=== PATIENT | female | born 1975 | race American Indian/Alaskan Native ===

== ENCOUNTER 2019-04-23 00:30 | Emergency (ER) | payer MEDICAID ==
[2019-04-23 01:52] LABS: Basophils % (Auto) 0.2 % (0.0-1.8); Eosinophils % (Auto) 0.3 % (0.0-4.3); Hematocrit 39.7 % (30.3-42.9); Hemoglobin 13.4 gm/dl (10.1-14.3); Lymphocytes # (Auto) 1.1 K/mm3 (1.2-5.4); Lymphocytes % (Auto) 19.9 % (13.4-35.0); Mean Corpuscular HGB Conc 34 % (30-34); Mean Corpuscular Volume 87 fl (79-97); Monocytes # (Auto) 0.4 K/mm3 (0.0-0.8); Platelet Count 226 K/mm3 (140-440); Red Blood Count 4.55 M/mm3 (3.65-5.03); Red Cell Distribution Width 15.4 % (13.2-15.2)
[2019-04-23 01:56] LABS: Alanine Aminotransferase 62 units/L (7-56); Albumin 4.3 g/dL (3.9-5); BUN/Creatinine Ratio 13; Blood Urea Nitrogen 10 mg/dL (7-17); Calcium 9.5 mg/dL (8.4-10.2); Hemolysis Index 8
[2019-04-23] MEDS ORDERED: TYLENOL ONE (02:29)
[2019-04-23] MEDS ORDERED: TYLENOL PO ONE (02:29)
[2019-04-23 02:42] LABS: Bilirubin,Urine NEG (Negative); Blood,Urine NEG (Negative); Color,Urine Yellow (Yellow); Protein,Urine <15 mg/dL mg/dL (Negative); Urobilinogen,Urine < 2.0 mg/dL (<2.0)
[2019-04-23] MEDS ORDERED: MORPHINE IV ONE (03:51)
[2019-04-23] MEDS ORDERED: PEPCID IV ONE (03:51)
[2019-04-23] MEDS ORDERED: ZOFRAN IV ONE (03:52)
--- NOTE | 2019-04-23 03:54 | Emergency Department Report ---
ED Abdominal Pain HPI - General Chief Complaint: Abdominal Pain Stated Complaint: ABD PAIN Time Seen by Provider: 04/23/19 03:50 Source: patient, family Mode of arrival: Ambulatory Limitations: No Limitations - History of Present Illness Initial Comments: Mrs. Israel is a healthy 44-year-old female who presents with central abdominal pain this evening. Gradual Onset. Gas-like pain. Dull. Moderately severe. Denies fever. Denies vomiting. Denies diarrhea. MD Complaint: abdominal pain -: Gradual, This evening Location: diffuse Radiation: none Migration to: no migration Severity: moderate Severity scale (0 -10): 10 Quality: aching, dull Consistency: constant Improves With: nothing Worsens With: nothing Associated Symptoms: denies other symptoms - Related Data Previous Rx's Medication Instructions Recorded Last Taken Type Ciprofloxacin HCl [Ciprofloxacin 500 mg PO Q12HR 3 Days #6 tab 04/23/19 Unknown Rx TAB] Famotidine [Pepcid] 20 mg PO BID 7 Days #14 tablet 04/23/19 Unknown Rx Promethazine [Phenergan] 25 mg PO Q6HR PRN #10 tab 04/23/19 Unknown Rx Allergies Allergy/AdvReac Type Severity Reaction Status Date / Time No Known Allergies Allergy Verified 04/23/19 00:33 ED Review of Systems ROS: Stated complaint: ABD PAIN Other details as noted in HPI Comment: All other systems reviewed and negative Constitutional: denies: fever, malaise Respiratory: denies: cough Cardiovascular: denies: chest pain ED Past Medical Hx - Past Medical History Previous Medical History?: No - Surgical History Past Surgical History?: Yes Additional Surgical History: Tubal Ligation - Social History Smoking Status: Never Smoker Substance Use Type: None - Medications Home Medications: Home Medications Medication Instructions Recorded Confirmed Last Taken Type Ciprofloxacin HCl [Ciprofloxacin 500 mg PO Q12HR 3 Days #6 tab 04/23/19 Unknown Rx TAB] Famotidine [Pepcid] 20 mg PO BID 7 Days #14 tablet 04/23/19 Unknown Rx Promethazine [Phenergan] 25 mg PO Q6HR PRN #10 tab 04/23/19 Unknown Rx ED Physical Exam - General Limitations: No Limitations General appearance: alert, in no apparent distress - Head Head exam: Present: atraumatic, normocephalic - Eye Eye exam: Present: normal appearance - ENT ENT exam: Present: mucous membranes moist - Neck Neck exam: Present: normal inspection, full ROM - Respiratory Respiratory exam: Present: normal lung sounds bilaterally. Absent: respiratory distress, wheezes, rales, rhonchi - Cardiovascular Cardiovascular Exam: Present: regular rate, normal rhythm, normal heart sounds. Absent: systolic murmur, diastolic murmur, rubs, gallop - GI/Abdominal GI/Abdominal exam: Present: soft, normal bowel sounds. Absent: distended, tenderness, rebound - Extremities Exam Extremities exam: Present: normal inspection - Back Exam Back exam: Present: normal inspection - Neurological Exam Neurological exam: Present: alert, oriented X3 - Psychiatric Psychiatric exam: Present: normal affect, normal mood - Skin Skin exam: Present: warm, dry, intact, normal color. Absent: rash ED Course Vital Signs 04/23/19 04/23/19 04/23/19 00:46 04:26 04:27 Temperature 97.7 F Pulse Rate 50 L Respiratory 16 18 18 Rate Blood Pressure 145/73 O2 Sat by Pulse 99 100 Oximetry ED Medical Decision Making - Lab Data Result diagrams: 04/23/19 01:20 04/23/19 01:20 - Radiology Data Radiology results: report reviewed CT A/P: nonspecific jejunitis, distended gallbladder without stones - Medical Decision Making Mrs. Clarke presents with 8 hours of central abdominal pain. CT reflects findings of jejunitis distended gallbladder. Suspect early mild GI illness whi ch will resolved. Do not suspect severe process such as ischemia or cholecystitis. Recommended clear liquid diet. prescribed promethazine ciprofloxacin and famotidine. Critical care attestation.: If time is entered above; I have spent that time in minutes in the direct care of this critically ill patient, excluding procedure time. ED Disposition Clinical Impression: Enteritis, Abdominal pain Disposition: DC-01 TO HOME OR SELFCARE Is pt being admited?: No Condition: Stable Instructions: Abdominal Pain (ED), Gastroenteritis (ED) Prescriptions: Ciprofloxacin HCl [Ciprofloxacin TAB] 500 mg PO Q12HR 3 Days #6 tab Famotidine [Pepcid] 20 mg PO BID 7 Days #14 tablet Promethazine [Phenergan] 25 mg PO Q6HR PRN #10 tab PRN Reason: Nausea Referrals: [facility] - [place] [Outside] - 3-5 Days
--- NOTE | 2019-04-23 05:08 | Cat Scan Report ---
PROCEDURE: CT ABDOMEN PELVIS W CON TECHNIQUE: Computerized axial tomography of the abdomen and pelvis was performed after the IV inject ion of iodinated nonionic contrast. CT DOSE LENGTH PRODUCT: mGycm HISTORY: abdominal pain COMPARISONS: None . FINDINGS: Visualized lower thorax: No significant abnormality. Liver: Normal size and attenuation. Spleen: Normal size and attenuation. Gallbladder and biliary system: The gallbladder is distended. Stones are not seen. The common bile me asures 8 mm in diameter which is mildly prominent.. Pancreas: Normal. Adrenals: Normal. Kidneys: Normal. GI tract: There is mild distention of jejunal loops in the upper abdomen with a few air-fluid levels . There is no transition point. The ileal loops are normal in caliber. The colon is normal in caliber . The appendix is not enlarged. . Lymph nodes and mesentery: Normal. Vasculature: Normal.. Bladder: Normal. Reproductive organs: Normal. Peritoneum: No free fluid. Musculoskeletal structures: No significant abnormality. Other: None . IMPRESSION: Mild distention of jejunal loops in the upper abdomen with several air-fluid levels and no transition point. A nonspecific jejunitis cannot be excluded. Distended gallbladder without stones. The common bile duct measures 8 mm in diameter. Correlation wit h liver function tests recommended. This document is electronically signed by Tristan Hess MD., April 23 2019 05:05:59 AM ET
[2019-04-23] MEDS ORDERED: LEVAQUIN PO ONE (05:18)
[2019-04-23 06:34] VITALS: BP 138/66
== END 2019-04-23 05:40 | disposition home or self-care (01) ==
LOC: ED 00:30
DX: K52.9 Noninfective gastroenteritis and colitis, unspecified (principal)
CPT/HCPCS: 36415; 74177; 80053; 81001; 84703; 85025; 96374; 96375; 99284; J2270; J2405; Q9967